=== PATIENT | male | born 1935 | race Caucasian/White ===

== ENCOUNTER → 2018-09-05 | Outpatient (CLI) | payer OTHER ==
[~2018-09-05] MED LIST: ASPIRIN EC81 M1; FISHOIL; GLUCOTROL10 MG; HYTRIN 2MG CAPSU2 M1; MECLIZINE 25 MG25 M1 PO; MULTIVITAMINS; OMEPRAZOLE20 M2; QUINU5 PD; VITAMIN C120 GM; ZOCOR 10 MG TAB10 MG
== END ==
LOC: CAT 08:43
DX: Z13.6 Encounter for screening for cardiovascular disorders (principal); E78.00 Pure hypercholesterolemia, unspecified; I25.10 Atherosclerotic heart disease of native coronary artery without angina pectoris